=== PATIENT | male | born 1945 | race Caucasian/White ===

== ENCOUNTER 2018-08-25 03:39 | Emergency (ER) | payer BC, OTHER ==
[~2018-08-25] VITALS: Ht 185.4 cm; Wt 80.0 kg
[2018-08-25] MEDS ORDERED: ONDANSETRON 2MG/ML, 2ML IVPush ONE (04:00)
[2018-08-25] MEDS ORDERED: MORPHINE SULFATE 4 MG/ML, 1ML IVPush PRN (04:00)
[2018-08-25] MEDS ORDERED: MORPHINE SULFATE 4 MG/ML, 1ML ONE (04:29)
[2018-08-25] MEDS ORDERED: ONDANSETRON 2MG/ML, 2ML ONE (04:29)
[2018-08-25] MEDS ORDERED: PLEASE ENTER ALLERGIES MC SCH (04:30)
[2018-08-25 04:39] VITALS: BP 158/72
[2018-08-25 04:42] LABS: BASOPHILS # (AUTO) 0.02 x10^3/uL (0-0.1); BASOPHILS % (AUTO) 0 % (0-1); EOSINOPHILS # (AUTO) 0.08 x10^3/uL (0-0.4); EOSINOPHILS % (AUTO) 1 % (1-7); LYMPHOCYTES # (AUTO) 1.14 x10^3/uL (1-3.4); LYMPHOCYTES % (AUTO) 17 % (22-44); MD NO; MEAN CORPUSCULAR HEMOGLOBIN 34.1 pg (27.5-34.5); MEAN CORPUSCULAR HGB CONC 34.3 g/dL (33.2-36.2); MEAN CORPUSCULAR VOLUME 99.2 fL (81-97); MEAN PLATELET VOLUME 9.6 fL (7.4-10.4); MONOCYTES # (AUTO) 0.75 x10^3/uL (0.2-0.8); MONOCYTES % (AUTO) 11 % (2-9); NEUTROPHILS # (AUTO) 4.79 x10^3/uL (1.8-6.8); NEUTROPHILS % (AUTO) 71 % (42-75); PLATELET COUNT 174 x10^3/uL (130-400); RED BLOOD COUNT 4.79 x10^6/uL (4.38-5.82); RED CELL DISTRIBUTION WIDTH 12.6 % (9.4-14.8)
[2018-08-25 04:54] LABS: ALBUMIN 3.7 g/dL (3.4-5.0); ANION GAP 6 mmol/L (5-15); CALCIUM 8.8 mg/dL (8.5-10.1); CHLORIDE 113 mmol/L (98-107)
[2018-08-25 04:56] LABS: CREATININE 1.26 mg/dL (0.7-1.3)
--- NOTE | 2018-08-25 05:05 | NUR ---
Patient Tx'd to [facility] secondary to needing higher level of care for SAH. Patient going ER to ER and care Tx'd to Dr. Cummings ([facility] ED doctor). Dr. Chavarria is Neurosurgeon acccepting patient at [facility] as well. Patient left this ED @0505. Tx set up through [facility] center and [facility] dispatch. All information faxed to [phone] and [phone] at [facility].
== END 2018-08-25 05:11 | disposition short-term general hospital (02) ==
LOC: ED 04:29
DX: I60.9 Nontraumatic subarachnoid hemorrhage, unspecified (principal)
CPT/HCPCS: 36415; 70450; 80048; 82040; 85025; 93005; 96365; 96375; 99291; J2405; J7050